=== PATIENT | female | born 1980 | race Caucasian/White ===

== ENCOUNTER 2018-10-06 15:26 | Emergency (ER) | payer BC, SELFPAY ==
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
== END 2018-10-06 16:50 | disposition home or self-care (01) ==
LOC: ER 15:26
DX: S13.4XXA Sprain of ligaments of cervical spine, initial encounter (principal); V59.40XA Driver of pick-up truck or van injured in collision with unspecified motor vehicles in traffic accident, initial encounter
CPT/HCPCS: 72125; 99284